=== PATIENT | male | born 1935 | race Caucasian/White ===

== ENCOUNTER → 2017-10-22 13:30 | Outpatient (CLI) | payer MEDICARE ==
[2017-10-22 16:26] LABS: HEMATOCRIT 35.2 % (42.0-54.0); HEMOGLOBIN 11.4 g/dL (13.5-17.5); LYMPHOCYTES 21.8 % (15-50); MCHC 32.4 g/dL (31.0-37.0); MCV 86.5 fL (80.0-100.0); MEAN PLATELET VOLUME 10.3 fL (7.4-10.4); NEUTROPHILS 66.8 % (40-80); PLATELET COUNT 117 10x3/uL (130-400); RBC 4.07 10x6/uL (4.20-6.10); RDW 15.5 % (11.5-14.5); WBC 6.9 10x3/uL (4.8-10.8)
[2017-10-22 16:31] LABS: APPEARANCE CLOUDY (CLEAR); BILIRUBIN NEGATIVE (NEGATIVE); COLOR BROWN (YELLOW); GLUCOSE NEGATIVE (NEGATIVE); KETONE NEGATIVE (NEGATIVE); NITRITE NEGATIVE (NEGATIVE); PROTEIN 2+ mg/dL (NEGATIVE); SPECIFIC GRAVITY 1.025 (1.005-1.020); UROBILINOGEN NORMAL (NORMAL)
[2017-10-22 16:33] LABS: BACTERIA MODERATE /hpf (NONE SEEN); EPITHELIAL CELLS 0-5 /hpf (0-5); MUCUS <1+ /lpf (NONE SEEN); RED CELLS - URINE >50 /hpf (0-5)
[2017-10-22 16:34] LABS: CALCIUM OXALATE CRYSTALS OCC /hpf (NONE SEEN)
== END | disposition home or self-care (01) ==
LOC: D.LABREF 13:30
PROVIDERS: Internal Medicine
DX: J18.9 Pneumonia, unspecified organism (principal); R05 Cough; A41.9 Sepsis, unspecified organism